=== PATIENT | male | born 1960 | race African-American/Black ===

== ENCOUNTER 2017-03-01 17:59 | Emergency (ER) | payer BC ==
[2017-03-01 18:16] VITALS: BP 133/74; PULSE 79; TEMP 98.2; BMI 31.1
[2017-03-01] MEDS ORDERED: CEPHALEXIN MONOHYDRATE 500 MG CAPSULE (UD) PO ONE (19:46)
[2017-03-01] MEDS ORDERED: SULFAMETHOXAZOLE/TRIMETHOPRIM 800MG/160MG D.S. TABLET PO ONE (19:46)
--- NOTE | 2017-03-01 19:50 | PDOC ---
History of Present Illness - General Chief Complaint: Abscess Boil Stated Complaint: SWOLLEN FINGER Time Seen by Provider: 03/01/17 18:58 History Source: Patient Exam Limitations: No Limitations - History of Present Illness Initial Comments: 03/01/17 19:55 My chief Complaint: left middle finger pain and swelling History of present illness: He is a 56-year-old male with history of prostate cancer, [id number] diabetes, hyperlipidemia and hypertension here today c/o pain with swelling around left middle finger.He reports that he bites his cuticles. He is up to date with tetanus. Timing/Duration: getting worse Severity: moderate Past History - Past Medical History Allergies/Adverse Reactions: Allergies Allergy/AdvReac Type Severity Reaction Status Date / Time No Known Drug Allergies Allergy Verified 03/01/17 18:13 Home Medications: Ambulatory Orders Glipizide [Glipizide ER] 5 mg PO DAILY 09/02/15 Olmesartan Medoxomil [Benicar -] 20 mg PO DAILY 09/02/15 Ranolazine [Ranexa -] 500 mg PO BID 09/02/15 Rosuvastatin [Crestor -] 10 mg PO HS 09/02/15 Sitagliptin Phosphate [Januvia -] 100 mg PO DAILY 09/02/15 Cephalexin Monohydrate [Keflex -] 500 mg PO Q8H #20 capsule 03/01/17 Sulfamethoxazole/Trimethoprim [Bactrim Ds -] 1 tab PO BID #13 tablet 03/01/17 Cancer: Yes (prostate) Diabetes: Yes HTN: Yes Hypercholesterolemia: Yes Suicide Attempt (Hx): No - Surgical History Appendectomy: Yes Orthopedic Surgery: Yes (FRACTURED FEMUR) - Immunization History Td Vaccination: Yes - Psycho/Social/Smoking Cessation Hx Anxiety: No Suicidal Ideation: No Smoking Status: No Smoking History: Current some day smoker Years of Tobacco Use: 1 Have you smoked in the past 12 months: No Number of Cigarettes Smoked Daily: 1 Cigars Per Day: 1 Information on smoking cessation initiated: No 'Breaking Loose' booklet given: 05/30/15 Hx Alcohol Use: No Drug/Substance Use Hx: No Substance Use Type: None Hx Substance Use Treatment: No Review of Systems - Review of Systems Able to Perform ROS?: Yes Constitutional: No: Symptoms Reported HEENTM: No: Symptoms Reported Respiratory: No: Symptoms reported Cardiac (ROS): No: Symptoms Reported ABD/GI: No: Symptoms Reported : No: Symptoms Reported Musculoskeletal: No: Symptoms Reported Integumentary: Yes: Erythema (around left middle finger paronychium with swelling ) Neurological: No: Symptoms reported *Physical Exam - Vital Signs Last Vital Signs Temp Pulse Resp BP Pulse Ox 98.2 F 79 18 133/74 100 03/01/17 18:14 03/01/17 18:14 03/01/17 18:14 03/01/17 18:14 03/01/17 18:14 - Physical Exam General Appearance: Yes: Appropriately Dressed Comments:: 03/01/17 19:49 radial pulse left 4+ Extremity: positive: Normal Capillary Refill, Normal Range of Motion (left middle finger pip jt, dip jt, pip jt), Tender (left middle finger around paronychium), Swelling (left middle finger around paronychium) Integumentary: positive: Erythema (around medial paronychium left middle finger ) Neurologic: positive: Normal Response, Respond to painful stimul (left middle finger), Responsive Procedures - Consent Consent obtained: From Patient - Incision and Drainage I&D Site: Left: Paronychia (middle ) Betadine cleansed: Yes Anesthesia: 1% Lidocaine Blade Size: 11 Attempts: 3 Plain Packing: No Complications: none Dressing: Yes Progress: 03/01/17 19:54 using a 18 gauge needle lifting medial aspect of left middle finger obtained a large amount of grayish thick non odorous drainage Medical Decision Making - Medical Decision Making 03/01/17 19:55 03/01/17 19:58 He is a 56-year-old male with history of prostate cancer, non-insulin- dependent diabetes, hyperlipidemia and hypertension here today c/o pain with swelling around left middle finger.He reports that he bites his cuticles. He is up to date with tetanus. Left middle finger paronychium Plan: wound C & S bactrim DS one tab bid for 7 days keflex 500 mg po now than every 8 hrs for 7 days *DC/Admit/Observation/Transfer Diagnosis at time of Disposition: Paronychia Qualifiers: Laterality: left Qualified Code(s): L03.012 - Cellulitis of left finger - Discharge Dispostion Disposition: HOME Condition at time of disposition: Stable - Patient Instructions Additional Instructions: You may soak your left finger and warm salt water one cup of water to half a teaspoon of salt every 2-3 hours while awake Return to Emergency room if any increased redness around finger, increased pain or fever Take ibuprofen as needed as directed by timber faller for pain Patient voiced understanding of discharge instructions and all questions were answered
[2017-03-01] MEDS ORDERED: SULFAMETHOXAZOLE/TRIMETHOPRIM 800MG/160MG D.S. TABLET ONE (19:58)
[2017-03-01] MEDS ORDERED: CEPHALEXIN MONOHYDRATE 500 MG CAPSULE (UD) ONE (19:59)
== END 2017-03-01 20:14 | disposition home or self-care (01) ==
LOC: JERFT 17:59
PROC: 0H9GXZZ Drainage of Left Hand Skin, External Approach (ICD-10-PCS; principal; 2017-03-01)
DX: L03.012 Cellulitis of left finger (principal); I10 Essential (primary) hypertension; E11.9 Type 2 diabetes mellitus without complications; Z79.84 Long term (current) use of oral hypoglycemic drugs; E78.00 Pure hypercholesterolemia, unspecified; Z85.46 Personal history of malignant neoplasm of prostate
CPT/HCPCS: 87070; 87205; 99281-25

== ENCOUNTER 2018-03-25 07:59 | Emergency (ER) | payer BC ==
[2018-03-25 08:10] VITALS: BP 125/65; PULSE 88; TEMP 97.5; BMI 30.1
[2018-03-25] MEDS ORDERED: IBUPROFEN 600 MG TABLET (FP) PO ONE ×2 (08:34→08:37)
--- NOTE | 2018-03-25 08:40 | PDOC ---
History of Present Illness - General Chief Complaint: Pain Stated Complaint: NECK PAIN Time Seen by Provider: 03/25/18 08:18 History Source: Patient Exam Limitations: No Limitations - History of Present Illness Initial Comments: 03/25/18 08:38 This is a 57-year-old male with past medical history of diabetes and prostate cancer status post radical prostatectomy presents emergency Department with left lateral neck pain since awaking on 03/21. Patient states she's been taking Motrin and applying menthol rubs with short-term relief of symptoms. Patient states needing to take more [id number] medication. Relieve his pain prior to next scheduled dose. He denies any traumas, headache, dizziness, home visit field care manager, massage or numbness/tingling to upper extremities. Past History - Past Medical History Allergies/Adverse Reactions: Allergies Allergy/AdvReac Type Severity Reaction Status Date / Time No Known Drug Allergies Allergy Verified 03/25/18 08:04 Home Medications: Ambulatory Orders Glipizide [Glipizide ER] 5 mg PO DAILY 09/02/15 Olmesartan Medoxomil [Benicar -] 20 mg PO DAILY 09/02/15 Ranolazine [Ranexa -] 500 mg PO BID 09/02/15 Rosuvastatin [Crestor -] 10 mg PO HS 09/02/15 Sitagliptin Phosphate [Januvia -] 100 mg PO DAILY 09/02/15 Cephalexin Monohydrate [Keflex -] 500 mg PO Q8H #20 capsule 03/01/17 Sulfamethoxazole/Trimethoprim [Bactrim Ds -] 1 tab PO BID #13 tablet 03/01/17 Methocarbamol [Robaxin -] 1,500 mg PO Q8H PRN #30 tablet 03/25/18 Cancer: Yes (prostate) COPD: No DVT: No Diabetes: Yes HTN: Yes Hypercholesterolemia: Yes - Surgical History Appendectomy: Yes Orthopedic Surgery: Yes (FRACTURED FEMUR) - Immunization History Td Vaccination: Yes - Suicide/Smoking/Psychosocial Hx Smoking Status: No Smoking History: Current some day smoker Years of Tobacco Use: 1 Have you smoked in the past 12 months: No Number of Cigarettes Smoked Daily: 1 Cigars Per Day: 1 Information on smoking cessation initiated: Yes 'Breaking Loose' booklet given: 03/25/18 Hx Alcohol Use: No Drug/Substance Use Hx: No Substance Use Type: None Hx Substance Use Treatment: No Trauma Specific PMHX - Complaint Specific PMHX Back Injury: No Review of Systems - Review of Systems Able to Perform ROS?: Yes Is the patient limited Belarusian proficient: No Constitutional: No: Symptoms Reported HEENTM: Yes: See HPI Respiratory: No: Symptoms reported Cardiac (ROS): No: Symptoms Reported ABD/GI: No: Symptoms Reported : No: Symptoms Reported Musculoskeletal: No: Symptoms Reported Integumentary: No: Symptoms Reported Neurological: No: Symptoms reported Endocrine: No: Symptoms Reported *Physical Exam - Vital Signs Last Vital Signs Temp Pulse Resp BP Pulse Ox 97.5 F L 88 18 125/65 100 03/25/18 08:05 03/25/18 08:05 03/25/18 08:05 03/25/18 08:05 03/25/18 08:05 - Physical Exam General Appearance: Yes: Appropriately Dressed. No: Apparent Distress HEENT: positive: Normal ENT Inspection Neck: positive: Trachea midline, Supple, Other (Palpable muscle spasm of the left sternocleidomastoid) Respiratory/Chest: positive: Lungs Clear, Normal Breath Sounds. negative: Respiratory Distress, Accessory Muscle Use Cardiovascular: positive: Regular Rhythm, Regular Rate, S1, S2. negative: Edema , Murmur Musculoskeletal: positive: Muscle Spasm (left sternocleidomastoid) Neurologic: positive: Alert, Normal Response Medical Decision Making - Medical Decision Making 03/25/18 08:42 A/P: 57-year-old male past medical history of diabetes, prostate cancer status post radical prostatectomy with 5 days of left lateral neck Decreased range of motion with right lateral rotation of the cervical spine Full flexion and extension of the cervical spine noted Palpable muscle spasm of the left sternocleidomastoid immediately superior to the clavicle Full sensation noted in upper extremities Web Production Manager strength 5/5 Patient with torticollis. I will discharge the patient home with prescription for Robaxin as well as instructions for adjunctive therapies to help relieve the muscle spasm. Patient instructed to avoid massage and home visit field care manager until muscle spasm has been eradicated. Patient instructed to follow up with his primary doctor if symptoms do not improve within the next 24-48 hours.Patient advised not to drink or operate heavy machinery while taking the Robaxin. Patient verbalizes understanding of discharge instructions. *DC/Admit/Observation/Transfer Diagnosis at time of Disposition: Torticollis, acquired - Discharge Dispostion Disposition: HOME Condition at time of disposition: Fair Decision to Admit order: No - Prescriptions Prescriptions: Methocarbamol [Robaxin -] 1,500 mg PO Q8H PRN #30 tablet PRN Reason: Muscle Spasms - Referrals Referrals: Rell Putnam MD [Primary Care Provider] - - Patient Instructions Printed Discharge Instructions: DI for Neck Pain Additional Instructions: Rest, no heavy lifting or exercise until pain is resolved Hot soaks to neck and low back as often as possible/hot showers or Jacuzzis No massage or therapy until spasm is gone Continue ibuprofen 2-200 mg tablets every 6 hours for the next 3 days then as needed for pain and swelling Robaxin 1500 mg every 8 hours as needed for spasm If not significant improvement within 24 hours with medication and rest regime, followup with private physician for change in medications and /or therapy. - Post Discharge Activity
== END 2018-03-25 08:55 | disposition home or self-care (01) ==
LOC: JERFT 07:59
DX: M43.6 Torticollis (principal); I10 Essential (primary) hypertension; E78.00 Pure hypercholesterolemia, unspecified; E11.9 Type 2 diabetes mellitus without complications; Z79.84 Long term (current) use of oral hypoglycemic drugs; Z85.46 Personal history of malignant neoplasm of prostate; Z90.79 Acquired absence of other genital organ(s)
CPT/HCPCS: 99281-25

== ENCOUNTER 2021-02-07 17:06 | Observation (INO) | payer BC ==
[2021-02-07 20:04] LABS: BASO % 1.2 % (0-2.0); EOS % 5.3 % (0-4.5); HEMATOCRIT 22.8 % (35.4-49); LYMPH % 29.6 % (8-40); MCHC 30.1 g/dl (32.0-35.9); MEAN CELL VOLUME 60.7 fl (80-96); MEAN PLT VOLUME 8.6 fl (7.5-11.1); NEUT % 47.9 % (42.8-82.8); PLATELET COUNT 197 K/MM3 (134-434); RBC 3.76 M/mm3 (4.00-5.60); RDW 19.5 % (11.9-15.9); WHITE BLOOD COUNT 5.6 K/mm3 (4.0-10.0)
[2021-02-07 20:13] LABS: CHLORIDE 109 mmol/L (98-107); SODIUM 140 mmol/L (136-145)
[2021-02-07 20:15] LABS: MCH 18.2 pg (25.7-33.7)
[2021-02-07 20:16] LABS: ALBUMIN 3.4 g/dl (3.4-5.0); ANION GAP 6 MMOL/L (8-16); BLOOD UREA NITROGEN 13.8 mg/dL (7-18); CALCIUM 8.6 mg/dL (8.5-10.1); CO2 25 mmol/L (21-32)
[2021-02-07 20:17] LABS: GLUCOSE,RANDOM 142 mg/dL (74-106); HEMOGLOBIN 6.9 GM/dL (11.7-16.9)
[2021-02-07 20:19] LABS: SGPT/ALT 15 U/L (13-61)
[2021-02-07 20:20] LABS: CREATININE 0.9 mg/dL (0.55-1.3); SGOT/AST 14 U/L (15-37)
[2021-02-07 20:21] LABS: BILIRUBIN,TOTAL 0.2 mg/dL (0.2-1); TOT PROT 6.4 g/dl (6.4-8.2)
[2021-02-07 20:22] LABS: ALK PHOS 50 U/L (45-117)
[2021-02-07 21:15] LABS: INR 0.98 (0.83-1.09); PROTHROMBIN TIME (PATIENT) 11.9 SEC (9.7-13.0)
[2021-02-07 21:18] LABS: ACTIVATED PTT 26.1 SECONDS (25.2-36.5)
[2021-02-08 00:08] LABS: ANISOCYTOSIS 2+; MACROCYTOSIS 0; PLATELET ESTIMATE NORMAL
[2021-02-08 04:00] VITALS: BMI 32.1
[2021-02-08 08:49] LABS: BASO % 0.9 % (0-2.0); EOS % 4.1 % (0-4.5); HEMATOCRIT 28.8 % (35.4-49); HEMOGLOBIN 9.2 GM/dL (11.7-16.9); LYMPH % 26.2 % (8-40); MCHC 32.1 g/dl (32.0-35.9); MEAN CELL VOLUME 65.3 fl (80-96); MEAN PLT VOLUME 8.2 fl (7.5-11.1); MONO % 11.3 % (3.8-10.2); NEUT % 57.5 % (42.8-82.8); PLATELET COUNT 193 K/MM3 (134-434); RBC 4.41 M/mm3 (4.00-5.60); RDW 23.6 % (11.9-15.9); WHITE BLOOD COUNT 5.5 K/mm3 (4.0-10.0)
[2021-02-08 09:22] LABS: ALBUMIN 3.5 g/dl (3.4-5.0); BLOOD UREA NITROGEN 12.8 mg/dL (7-18); CALCIUM 8.5 mg/dL (8.5-10.1)
[2021-02-08 09:26] LABS: CREATININE 0.7 mg/dL (0.55-1.3)
[2021-02-08 09:27] LABS: BILIRUBIN,TOTAL 0.7 mg/dL (0.2-1); TOT PROT 6.6 g/dl (6.4-8.2)
[2021-02-08] MEDS ORDERED: IRON SUCROSE INJECTION 100 MG in SODIUM CHLORIDE 95 ML IVPB ONE (11:00)
[2021-02-08] MEDS: RANOLAZINE E.R. 500 MG TABLET (FP) PO SCH (22:27)
[2021-02-08] MEDS: ROSUVASTATIN CA 10 MG TABLET (FP) PO SCH (22:27)
[2021-02-09] MEDS: glipiZIDE-XL 5 MG TAB.ER.24 PO SCH (06:02)
[2021-02-09] MEDS ORDERED: OLMESARTAN MEDOXOMIL PO SCH (10:00)
[2021-02-09] MEDS ORDERED: IRON SUCROSE INJECTION 100 MG in SODIUM CHLORIDE 95 ML IVPB ONE (10:33)
[2021-02-09] MEDS: RANOLAZINE E.R. 500 MG TABLET (FP) PO SCH ×2 (12:36→21:47)
[2021-02-09] MEDS: VALSARTAN 160 MG TABLET PO SCH (12:36)
[2021-02-09] MEDS ORDERED: BISACODYL 5 MG TABLET.DR (FP) PO ONE (16:00)
[2021-02-09] MEDS ORDERED: PEG 3350/NA SULF BICARB CL/KCL 4000 ML SOLN.RECON PO ONE (17:00)
[2021-02-09] MEDS ORDERED: MAGNESIUM CITRATE 300 ML BOTTLE PO ONE (19:05)
[2021-02-09] MEDS: ROSUVASTATIN CA 10 MG TABLET (FP) PO SCH (21:47)
[2021-02-10] MEDS: glipiZIDE-XL 5 MG TAB.ER.24 PO SCH (06:41)
[2021-02-10 08:02] LABS: EOS % 4.2 % (0-4.5); HEMATOCRIT 30.4 % (35.4-49); HEMOGLOBIN 9.6 GM/dL (11.7-16.9); MCH 20.7 pg (25.7-33.7); MCHC 31.7 g/dl (32.0-35.9); MEAN CELL VOLUME 65.4 fl (80-96); MEAN PLT VOLUME 8.3 fl (7.5-11.1); MONO % 10.2 % (3.8-10.2); NEUT % 61.6 % (42.8-82.8); PLATELET COUNT 181 K/MM3 (134-434); RBC 4.65 M/mm3 (4.00-5.60); WHITE BLOOD COUNT 5.6 K/mm3 (4.0-10.0)
[2021-02-10 08:24] LABS: CALCIUM 8.5 mg/dL (8.5-10.1)
[2021-02-10 08:25] LABS: BLOOD UREA NITROGEN 6.7 mg/dL (7-18)
[2021-02-10 08:28] LABS: CREATININE 0.8 mg/dL (0.55-1.3)
[2021-02-10] MEDS: RANOLAZINE E.R. 500 MG TABLET (FP) PO SCH (09:58)
[2021-02-10] MEDS: VALSARTAN 160 MG TABLET PO SCH (09:58)
[2021-02-10 13:44] VITALS: BP 128/84; PULSE 80; TEMP 98.4
== END 2021-02-10 15:51 | disposition home or self-care (01) ==
LOC: JER 17:06 → INTOOBSV 21:22 → JERBED 21:22 → J8W 02-08 03:20
PROVIDERS: ADMIT Hospitalist; ATTEND Family Medicine
PROC: 3E033GC Introduction of Other Therapeutic Substance into Peripheral Vein, Percutaneous Approach (ICD-10-PCS; principal; 2021-02-07)
DX: D64.9 Anemia, unspecified (principal); E11.65 Type 2 diabetes mellitus with hyperglycemia; E78.5 Hyperlipidemia, unspecified; E66.9 Obesity, unspecified; M19.90 Unspecified osteoarthritis, unspecified site; Z68.32 Body mass index [BMI] 32.0-32.9, adult; I10 Essential (primary) hypertension; Z85.46 Personal history of malignant neoplasm of prostate; Z86.16 Personal history of COVID-19; Z90.79 Acquired absence of other genital organ(s); F17.210 Nicotine dependence, cigarettes, uncomplicated
CPT/HCPCS: 36415; 36430; 71046-TC-FY; 74177-TC; 80048; 80053; 82272; 82550; 82728; 83010; 83540; 83550; 83615; 84466; 84484; 85025; 85610; 85730; 86850; 86900; 86901; 86922; 93005; 93010; 99285-25; C9803; G0378; J1756; P9058; Q9967; U0003; U0005

== ENCOUNTER 2021-04-02 11:39 | Emergency (ER) | payer BC ==
[2021-04-02 11:57] VITALS: BP 117/68; PULSE 99; TEMP 98.8; BMI 30.9
[2021-04-02] MEDS ORDERED: KETOROLAC TROMETHAMINE 60 MG/2 ML VIAL IM ONE (12:55)
[2021-04-02] MEDS ORDERED: KETOROLAC TROMETHAMINE 30 MG/1 ML VIAL ONE (13:08)
== END 2021-04-02 14:11 | disposition home or self-care (01) ==
LOC: JERFT 11:39
PROC: 3E0233Z Introduction of Anti-inflammatory into Muscle, Percutaneous Approach (ICD-10-PCS; principal; 2021-04-02)
DX: G56.22 Lesion of ulnar nerve, left upper limb (principal)
CPT/HCPCS: 73110-TC-RT-FY; 73130-TC-RT-FY; 99284-25

== ENCOUNTER 2021-04-26 00:20 | Emergency (ER) | payer BC ==
[2021-04-26 00:56] VITALS: BP 118/78; PULSE 81; TEMP 97.9; BMI 27.3
[2021-04-26] MEDS ORDERED: KETOROLAC TROMETHAMINE 60 MG/2 ML VIAL IM ONE (01:15)
[2021-04-26] MEDS ORDERED: LIDOCAINE 5% TOPICAL PATCH TP ONE (01:15)
[2021-04-26] MEDS ORDERED: KETOROLAC TROMETHAMINE 30 MG/1 ML VIAL ONE (01:23)
[2021-04-26] MEDS ORDERED: LIDOCAINE 5% TOPICAL PATCH ONE (02:16)
[2021-04-26] MEDS ORDERED: CYCLOBENZAPRINE HCL 10 MG TABLET (FP) PO ONE (02:38)
[2021-04-26] MEDS ORDERED: CYCLOBENZAPRINE HCL 10 MG TABLET (FP) ONE (02:47)
[2021-04-26] MEDS ORDERED: LIDOCAINE PATCH REMOVAL MC SCH (22:00)
== END 2021-04-26 02:56 | disposition home or self-care (01) ==
LOC: JER 00:20
PROC: 3E0233Z Introduction of Anti-inflammatory into Muscle, Percutaneous Approach (ICD-10-PCS; principal; 2021-04-26)
DX: M54.41 Lumbago with sciatica, right side (principal)
CPT/HCPCS: 72131-TC; 99284-25